=== PATIENT | female | born 1965 | race Caucasian/White ===

== ENCOUNTER 2021-01-31 09:12 | Emergency (ER) | payer SELFPAY ==
[~2021-01-31] VITALS: Ht 172 cm; Wt 139.4 kg
[2021-01-31] MEDS ORDERED: ONDANSETRON 4 MG/2 ML (SDV) Z0FRAN IVP ONE (09:45)
[2021-01-31] MEDS ORDERED: fentaNYL INJ 100 MCG/2 ML AMP IVP ONE (09:45)
[2021-01-31] MEDS ORDERED: LACTATED RINGERS 1,000 ML IV ONE (09:45)
--- NOTE | 2021-01-31 09:52 | ED Abdominal Pain ---
General Chief Complaint: Abdominal/GI Problems Stated Complaint: ABD PAIN Nursing Triage Note: AMBULATED TO ROOM 05 WITH COMPLAINTS OF ABD PAIN STARTING THIS AM. STATES IT HURTS TO PEE. Sepsis Screen: No Definite Risk Source of Information: Patient Exam Limitations: No Limitations History of Present Illness Date Seen by Provider: Jan 31, 2021 Time Seen by Provider: 09:15 Initial Comments Patient presents ER by private conveyance from home with her daughter in chief complaint that she had just gotten off work at [employer] when she went to the bathroom urinated and then felt a stinging sharp pain 8 out of 10 across the top of her abdomen radiating to both sides and around to her back. No tearing sensation. No numbness or tingling. She now has pain all over her abdomen 9 out of 10 sharp. Last bowel movement was yesterday a small amount. No diarrhea. She is having nausea but no vomiting. No fevers or chills. No cough shortness of air or chest pain. She has a history of , appendectomy, cholecystectomy and follows with a xerox machine operator when she lived in [place] a year ago for a valvular issue. She says she had echocardiogram a year ago and it was normal. She has had no recent surgeries and no history of endoscopy. No blood in the stool. Allergies and Home Medications Allergies Coded Allergies: Penicillins (Verified Allergy, Severe, Stops breathing, 01/31/21) Home Medications Metronidazole 500 Mg Tablet, 500 MG PO TID Prescribed by: NAYLA LOW on 01/31/21 1219 Patient Home Medication List Home Medication List Reviewed: Yes Review of Systems Review of Systems Constitutional: No chills, No fever EENTM: No Blurred Vision, No Double Vision Respiratory: Denies Cough, Denies Shortness of Air Cardiovascular: Denies Chest Pain, Denies Lightheadedness Gastrointestinal: Denies Constipated, Denies Diarrhea Genitourinary: Denies Discharge, Denies Drainage Musculoskeletal: No back pain, No joint pain Skin: No pruritus, No rash All Other Systems Reviewed Negative Unless Noted: Yes Past Kubwzoh-Egosqs-Pxgixq Hx Patient Social History Alcohol Use: Denies Use Smoking Status: Current Everyday Smoker Recent Infectious Disease Expo: No Recent Hopitalizations: No Seasonal Allergies Seasonal Allergies: No Past Medical History Surgeries: Yes Gallbladder, Hysterectomy Respiratory: No Cardiac: No Neurological: No Genitourinary: No Gastrointestinal: No Musculoskeletal: No Endocrine: No HEENT: No Cancer: No Psychosocial: No Integumentary: No Blood Disorders: No Physical Exam Vital Signs Vital Signs - First Documented 01/31/21 09:20 Temp 37.0 Pulse 96 Resp 16 B/P (MAP) 109/67 (81) Pulse Ox 97 O2 Delivery Room Air Capillary Refill : Less Than 3 Seconds Height/Weight/BMI Height: '" Weight: lbs. oz. kg; 47.00 BMI Method: General Appearance: mild distress, obese HEENT: PERRL/EOMI, pharynx normal Neck: full range of motion, normal inspection Respiratory: lungs clear, normal breath sounds, no respiratory distress, no accessory muscle use Cardiovascular: normal peripheral pulses, regular rate, rhythm Peripheral Pulses: 2+ Radial Pulses (R), 2+ Radial Pulses (L) Gastrointestinal: normal bowel sounds, soft, no organomegaly, tenderness (All 4 quadrants but especially in the bilateral upper quadrants and epigastric region) Extremities: normal range of motion, non-tender, normal inspection, normal capillary refill Neurologic/Psychiatric: alert, normal mood/affect, oriented x 3 Skin: normal color, warm/dry Progress/Results/Core Measures Results/Orders Lab Results Laboratory Tests Test 01/31/21 09:50 01/31/21 11:20 Range/Units White Blood Count 7.3 4.3-11.0 10^3/uL Red Blood Count 4.78 3.80-5.11 10^6/uL Hemoglobin 14.1 11.5-16.0 g/dL Hematocrit 44 35-52 % Mean Corpuscular Volume 92 80-99 fL Mean Corpuscular Hemoglobin 30 25-34 pg Mean Corpuscular Hemoglobin Concent 32 32-36 g/dL Red Cell Distribution Width 14.0 10.0-14.5 % Platelet Count 248 130-400 10^3/uL Mean Platelet Volume 10.3 9.0-12.2 fL Immature Granulocyte % (Auto) 0 % Neutrophils (%) (Auto) 72 42-75 % Lymphocytes (%) (Auto) 21 12-44 % Monocytes (%) (Auto) 4 0-12 % Eosinophils (%) (Auto) 2 0-10 % Basophils (%) (Auto) 1 0-10 % Neutrophils # (Auto) 5.3 1.8-7.8 10^3/uL Lymphocytes # (Auto) 1.5 1.0-4.0 10^3/uL Monocytes # (Auto) 0.3 0.0-1.0 10^3/uL Eosinophils # (Auto) 0.1 0.0-0.3 10^3/uL Basophils # (Auto) 0.0 0.0-0.1 10^3/uL Immature Granulocyte # (Auto) 0.0 0.0-0.1 10^3/uL Sodium Level 139 135-145 MMOL/L Potassium Level 3.8 3.6-5.0 MMOL/L Chloride Level 103 98-107 MMOL/L Carbon Dioxide Level 24 21-32 MMOL/L Anion Gap 12 5-14 MMOL/L Blood Urea Nitrogen 13 7-18 MG/DL Creatinine 0.75 0.60-1.30 MG/DL Estimat Glomerular Filtration Rate > 60 BUN/Creatinine Ratio 17 Glucose Level 100 70-105 MG/DL Calcium Level 9.4 8.5-10.1 MG/DL Corrected Calcium 9.5 8.5-10.1 MG/DL Total Bilirubin 0.4 0.1-1.0 MG/DL Aspartate Amino Transf (AST/SGOT) 17 5-34 U/L Alanine Aminotransferase (ALT/SGPT) 32 0-55 U/L Alkaline Phosphatase 102 40-136 U/L C-Reactive Protein High Sensitivity 0.40 0.00-0.50 MG/DL Total Protein 6.8 6.4-8.2 GM/DL Albumin 3.9 3.2-4.5 GM/DL Lipase 25 8-78 U/L Urine Color YELLOW Urine Clarity CLEAR Urine pH 5.5 5-9 Urine Specific [place] 1.010 L 1.016-1.022 Urine Protein NEGATIVE NEGATIVE Urine Glucose (UA) NEGATIVE NEGATIVE Urine Ketones NEGATIVE NEGATIVE Urine Nitrite NEGATIVE NEGATIVE Urine Bilirubin NEGATIVE NEGATIVE Urine Urobilinogen 0.2 < = 1.0 MG/DL Urine Leukocyte Esterase 1+ H NEGATIVE Urine RBC (Auto) NEGATIVE NEGATIVE Urine RBC NONE /HPF Urine WBC 5-10 H /HPF Urine Squamous Epithelial Cells 2-5 /HPF Urine Crystals NONE /LPF Urine Bacteria TRACE /HPF Urine Casts NONE /LPF Urine Mucus NEGATIVE /LPF Urine Trichomonas FEW H /HPF Urine Culture Indicated NO My Orders Orders - NAYLA LOW Ua Culture If Indicated (01/31/21 09:15) Cbc With Automated Diff (01/31/21 09:40) Comprehensive Metabolic Panel (01/31/21 09:40) Hs C Reactive Protein (01/31/21 09:40) Fentanyl Inj (Sublimaze Injection) (01/31/21 09:45) Ondansetron Injection (Zofran Injectio (01/31/21 09:45) Lipase (01/31/21 09:40) Ed Iv/Invasive Line Start (01/31/21 09:40) Lactated Ringers (Lr 1000 Ml Iv Solution (01/31/21 09:45) Ct Abdomen/Pelvis W (01/31/21 09:52) Iohexol Injection (Omnipaque 350 Mg/Ml 1 (01/31/21 10:00) Received Contrast (Hold Metformin- Contr (01/31/21 10:00) Ns (Ivpb) (Sodium Chloride 0.9% Ivpb Bag (01/31/21 10:00) Ceftriaxone For Iv Use (Rocephin For I (01/31/21 12:15) Azithromycin Tablet (Zithromax Tablet) (01/31/21 12:15) Medications Given in ED Vital Signs/I&O 01/31/21 01/31/21 09:20 12:38 Temp 37.0 Pulse 96 99 Resp 16 16 B/P (MAP) 109/67 (81) 123/87 Pulse Ox 97 97 O2 Delivery Room Air Room Air Blood Pressure Mean: 81 Progress Progress Note #1: Time: 09:50 Progress Note Differential is broad as she has 4 quadrant abdominal pain that is worse in her upper transverse colon region. Constipation/obstipation/bowel obstruction, diverticulitis, gastritis, pancreatitis, colitis much less likely AAA, ischemic mesentery, gynecologic pelvic, kidney stone, UTI. Plan to get some labs and urine and get a CT of her abdomen and pelvis with IV contrast if she can tolerate it. She does not meet sepsis criteria at this time. 1 L of lactated Ringer's Progress Note #2: Time: 12:08 Progress Note Based on the UTI and trichomonas suspect that she may have PID. Were going to treat her with Rocephin and azithromycin offer her testing for gonorrhea and chlamydia and put her out on Flagyl. I suspect that the inflammation is gynecologic in origin. Patient declined STI testing at this time Diagnostic Imaging Diagonstic Imaging: CT Plain Films/CT/US/NM/MRI: abdomen, pelvis Comments [facility], [place] NAME: EULOGIO FLORES [facility] REC#: [id number] PT STATUS: REG ER : 1965 PHYSICIAN: NAYLA LOW MD ADMIT DATE: 01/31/21/ER Signed Date of Exam:01/31/21 CT ABDOMEN/PELVIS W PROCEDURE: CT abdomen and pelvis with contrast. TECHNIQUE: Multiple contiguous axial images were obtained through the abdomen and pelvis after administration of intravenous contrast. Auto Exposure Controls were utilized during the CT exam to meet ALARA standards for radiation dose reduction. All CT scans use one or more of the following dose optimizing techniques: automated exposure control, MA and/or KvP adjustment based on patient size and exam type or iterative reconstruction. INDICATION: Diffuse abdominal pain starting earlier today. CORRELATION STUDY: None. FINDINGS: Examination is compromised by motion artifact on multiple images. LOWER THORAX: Clear. LIVER: Unremarkable. GALLBLADDER: Cholecystectomy. No significant bile duct dilatation. SPLEEN: Unremarkable. PANCREAS: Unremarkable. ADRENAL GLANDS: Unremarkable. KIDNEYS: Exophytic mass inferior pole right kidney. Favors probable cyst but somewhat incompletely characterized compromised with motion. Kidneys and collecting systems otherwise unremarkable. No obstructive uropathy. ABDOMINAL AORTA: Unremarkable, nonaneurysmal. GASTROINTESTINAL TRACT: Mild stool within the colon. No large fecal impaction. No obstructive changes. There are few fluid-filled loops of small bowel in the lower pelvis. May reflect a component of mild enteritis. Trace amount of pelvic fluid. URINARY BLADDER: Decompressed. REPRODUCTIVE: Uterus and adnexa unremarkable. OSSEOUS STRUCTURES: Accentuated thoracic kyphosis. Advanced multilevel degenerative changes of the visualized thoracal lumbar spine. No acute bony abnormality. OTHER: None. IMPRESSION: 1. A few mildly prominent fluid-filled loops of small bowel in the low pelvis could reflect nonspecific enteritis. No high degree bowel obstruction. Trace amount of pelvic fluid may be associated with underlying inflammation. Dictated by: Dictated on workstation # [id number] Dict: 01/31/21 1051 Trans: 01/31/21 1135 CV [id number] Interpreted by: GALLITO BUTTS DO Electronically signed by: GALILTO BUTTS DO 01/31/21 1135 Reviewed: Reviewed by Me Departure Impression Primary Impression: Acute PID (pelvic inflammatory disease) Additional Impression: Urogenital trichomoniasis, unspecified Disposition: 01 HOME, SELF-CARE Condition: Stable Departure-Patient Inst. Decision time for Depature: 12:16 Referrals: ENA MONTIEL MD,LOCAL PHYSICIAN (PCP) Primary Care Physician Patient Instructions: Trichomoniasis (DC), Pelvic Inflammatory Disease Add. Discharge Instructions: You have an infection ascending from your bladder up into your pelvis known as pelvic inflammatory disease. We have treated you with antibiotics today and put you out with a course of Flagyl. Flagyl 1 tablet with food three times a day for the next week. Follow-up with a primary care doctor or ironing worker of your choice this week for a recheck. Your symptoms should be improving in about 3 to 4 days on antibiotics. Drink plenty of fluids and use Tylenol and ibuprofen as necessary for pain. Heating pads may also be helpful. All discharge instructions reviewed with patient and/or family. Voiced understanding. Scripts Metronidazole (Metronidazole) 500 Mg Tablet 500 MG PO TID for 7 Days, #28 TAB 0 Refills Prov: NAYLA LOW 01/31/21 Work/School Note: Work Release Form Date Seen in the Emergency Department: Jan 31, 2021 Return to Work: Feb 01, 2021 Restrictions: No Restrictions Copy Copies To 1: ENA MONTIEL MD, TITUS J Jan 31, 2021 09:52
[2021-01-31 09:58] LABS: BASOPHILS % (AUTO) 1 % (0-10); EOSINOPHILS # (AUTO) 0.1 10^3/uL (0.0-0.3); EOSINOPHILS % (AUTO) 2 % (0-10); HEMATOCRIT 44 % (35-52); HEMOGLOBIN 14.1 g/dL (11.5-16.0); LYMPHOCYTES # (AUTO) 1.5 10^3/uL (1.0-4.0); LYMPHOCYTES % (AUTO) 21 % (12-44); MEAN CORPUSCULAR HEMOGLOBIN 30 pg (25-34); MEAN CORPUSCULAR HGB CONC 32 g/dL (32-36); MEAN CORPUSCULAR VOLUME 92 fL (80-99); MEAN PLATELET VOLUME 10.3 fL (9.0-12.2); MONOCYTES # (AUTO) 0.3 10^3/uL (0.0-1.0); MONOCYTES % (AUTO) 4 % (0-12); NEUTROPHILS # (AUTO) 5.3 10^3/uL (1.8-7.8); NEUTROPHILS % (AUTO) 72 % (42-75); PLATELET COUNT 248 10^3/uL (130-400); WHITE BLOOD COUNT 7.3 10^3/uL (4.3-11.0)
[2021-01-31] MEDS ORDERED: NS 100 ML (IVPB) BAG IV ONE (10:00)
[2021-01-31] MEDS ORDERED: IOHEXOL 350 MG/ML 100 ML (OMNIPAQUE 350) VIAL IV ONE (10:00)
[2021-01-31] MEDS ORDERED: HOLD METFORMIN - RECEIVED CONTRAST 20 ML VIAL IV SCH (10:00)
[2021-01-31 10:13] LABS: ALBUMIN 3.9 GM/DL (3.2-4.5); CHLORIDE 103 MMOL/L (98-107); POTASSIUM 3.8 MMOL/L (3.6-5.0); SODIUM 139 MMOL/L (135-145)
[2021-01-31 10:15] LABS: CALCIUM 9.4 MG/DL (8.5-10.1)
[2021-01-31 10:16] LABS: GLUCOSE 100 MG/DL (70-105); TOTAL PROTEIN 6.8 GM/DL (6.4-8.2)
[2021-01-31 10:17] LABS: CARBON DIOXIDE 24 MMOL/L (21-32)
[2021-01-31 10:18] LABS: BILIRUBIN,TOTAL 0.4 MG/DL (0.1-1.0)
[2021-01-31 10:19] LABS: ALKALINE PHOSPHATASE 102 U/L (40-136)
[2021-01-31 10:20] LABS: CREATININE SERUM 0.75 MG/DL (0.60-1.30); GFR ESTIMATED > 60
[2021-01-31 10:21] LABS: BUN/CREATININE RATIO 17
[2021-01-31 10:22] LABS: ALANINE AMINOTRANSFERASE 32 U/L (0-55)
[2021-01-31 10:23] LABS: LIPASE 25 U/L (8-78)
--- NOTE | 2021-01-31 11:19 | Diagnostic Imaging Report ---
PROCEDURE: CT abdomen and pelvis with contrast. TECHNIQUE: Multiple contiguous axial images were obtained through the abdomen and pelvis after administration of intravenous contrast. Auto Exposure Controls were utilized during the CT exam to meet ALARA standards for radiation dose reduction. All CT scans use one or more of the following dose optimizing techniques: automated exposure control, MA and/or KvP adjustment based on patient size and exam type or iterative reconstruction. INDICATION: Diffuse abdominal pain starting earlier today. CORRELATION STUDY: None. FINDINGS: Examination is compromised by motion artifact on multiple images. LOWER THORAX: Clear. LIVER: Unremarkable. GALLBLADDER: Cholecystectomy. No significant bile duct dilatation. SPLEEN: Unremarkable. PANCREAS: Unremarkable. ADRENAL GLANDS: Unremarkable. KIDNEYS: Exophytic mass inferior pole right kidney. Favors probable cyst but somewhat incompletely characterized compromised with motion. Kidneys and collecting systems otherwise unremarkable. No obstructive uropathy. ABDOMINAL AORTA: Unremarkable, nonaneurysmal. GASTROINTESTINAL TRACT: Mild stool within the colon. No large fecal impaction. No obstructive changes. There are few fluid-filled loops of small bowel in the lower pelvis. May reflect a component of mild enteritis. Trace amount of pelvic fluid. URINARY BLADDER: Decompressed. REPRODUCTIVE: Uterus and adnexa unremarkable. OSSEOUS STRUCTURES: Accentuated thoracic kyphosis. Advanced multilevel degenerative changes of the visualized thoracal lumbar spine. No acute bony abnormality. OTHER: None. IMPRESSION: 1. A few mildly prominent fluid-filled loops of small bowel in the low pelvis could reflect nonspecific enteritis. No high degree bowel obstruction. Trace amount of pelvic fluid may be associated with underlying inflammation. Dictated by: Dictated on workstation # [id number]
[2021-01-31 11:26] LABS: BILIRUBIN,URINE NEGATIVE (NEGATIVE); CLARITY,URINE CLEAR; COLOR,URINE YELLOW; GLUCOSE, URINE (UA) NEGATIVE (NEGATIVE); KETONES,URINE NEGATIVE (NEGATIVE); LEUKOCYTE ESTERASE ,URINE 1+ (NEGATIVE); NITRITE,URINE NEGATIVE (NEGATIVE); PH,URINE 5.5 (5-9); PROTEIN,URINE NEGATIVE (NEGATIVE)
[2021-01-31 11:56] LABS: BACTERIA,URINE TRACE /HPF; TRICHOMONAS,URINE FEW /HPF
[2021-01-31] MEDS ORDERED: cefTRIAXone FOR IV USE 1,000 MG in WATER (STERILE) FOR INJECTION 10 ML IV ONE (12:15)
[2021-01-31] MEDS ORDERED: AZITHROMYCIN 250 MG TAB (ZITHROMAX) PO ONE (12:15)
[2021-01-31] MEDS ORDERED: METR-145 PO (12:19)
[2021-01-31 12:38] VITALS: BP 123/87
== END 2021-01-31 12:38 | disposition home or self-care (01) ==
LOC: ER 09:15
DX: N73.0 Acute parametritis and pelvic cellulitis (principal); A59.00 Urogenital trichomoniasis, unspecified; E66.9 Obesity, unspecified; F17.200 Nicotine dependence, unspecified, uncomplicated; Z68.42 Body mass index [BMI] 45.0-49.9, adult; Z88.0 Allergy status to penicillin
CPT/HCPCS: 36415; 74177; 80053; 81000; 83690; 85025; 86141